=== PATIENT | female | born 1975 | race African-American/Black ===

== ENCOUNTER 2018-08-15 16:09 | Emergency (ER) | payer OTHER ==
[~2018-08-15] VITALS: Ht 152.4 cm; Wt 56.7 kg
[2018-08-15 16:25] LABS: URINE BILIRUBIN NEGATIVE (Negative); URINE BLOOD 3+ (Negative); URINE CLARITY CLEAR; URINE COLOR YELLOW; URINE GLUCOSE-RANDOM* NEGATIVE (Negative); URINE KETONES NEGATIVE (Negative); URINE LEUKOCYTES-REFLEX TRACE (Negative); URINE NITRITE-REFLEX NEGATIVE (Negative); URINE PROTEIN (DIPSTICK) NEGATIVE (Negative); URINE SPECIFIC GRAVITY >= 1.030 (1.005-1.035); URINE UROBILINOGEN 0.2 E.U./dl (0.2-1.0)
[2018-08-15 16:38] LABS: CASTS None Seen /LPF (None Seen); CRYSTALS None Seen /LPF (None Seen); SQUAMOUS 0-3 Few /LPF (0-3); URINE RBC 0-2 Rare /HPF (0-2)
[2018-08-15 16:39] LABS: BACTERIA-REFLEX 1-9 Few /HPF (None Seen); URINE WBC-REFLEX None Seen /HPF (0-5)
[2018-08-15 16:46] LABS: ABSOLUTE NEUTROPHILS 6.8 thou/uL (1.4-8.2); BASOPHILS 0.5 % (0.0-2.0); EOSINOPHILS 2.7 % (0.0-3.0); HEMATOCRIT 34.8 % (37.0-47.0); HEMOGLOBIN 11.4 gm/dL (12.0-15.0); MCH 26.4 pg (26.0-34.0); MCHC 32.8 g/dL (28.0-37.0); MCV 80.3 fL (80.0-100.0); MONOCYTES 8.2 % (1.0-8.0); PLATELET COUNT 238 thou/uL (150-400); POLYS 70.6 % (36.0-66.0); RBC 4.33 mil/uL (4.20-5.00); RDW 13.9 % (10.5-14.5); WBC 9.6 thou/uL (4.0-11.0)
[2018-08-15 17:01] LABS: ANION GAP 9 mmol/L (7-16); BUN 18 mg/dL (7-18); CALCIUM 9.4 mg/dL (8.5-10.1); CHLORIDE 104 mmol/L (98-107); CO2 26 mmol/L (21-32); CREATININE 0.9 mg/dL (0.6-1.0); GLUCOSE 89 mg/dL (74-106); POTASSIUM 3.7 mmol/L (3.5-5.1); SODIUM 139 mmol/L (136-145)
[2018-08-15 17:07] LABS: ALBUMIN 3.6 g/dL (3.4-5.0); LIPASE 217 U/L (73-393); SGOT 28 U/L (15-37); SGPT 31 U/L (30-65); TOTAL BILIRUBIN < 0.1 mg/dL (<0.1-1.0)
[2018-08-15] MEDS ORDERED: NAPROSYN500 MG PO (19:02)
[2018-08-15 19:49] VITALS: BP 132/96
== END 2018-08-15 19:50 | disposition home or self-care (01) ==
LOC: ER 16:09
PROVIDERS: Emergency Medicine
DX: D25.9 Leiomyoma of uterus, unspecified (principal)

== ENCOUNTER 2018-09-19 16:02 | Emergency (ER) | payer OTHER ==
[~2018-09-19] VITALS: Ht 152.4 cm; Wt 57.1 kg
[~2018-09-19 16:02] MED LIST: MEDROXYPROGESTERONE IM; NAPROSYN500 MG PO
[2018-09-19 17:49] LABS: URINE BILIRUBIN NEGATIVE (Negative); URINE BLOOD 2+ (Negative); URINE CLARITY CLEAR; URINE COLOR YELLOW; URINE GLUCOSE-RANDOM* NEGATIVE (Negative); URINE KETONES TRACE (Negative); URINE LEUKOCYTES NEGATIVE (Negative); URINE NITRITE NEGATIVE (Negative); URINE PROTEIN (DIPSTICK) NEGATIVE (Negative); URINE SPECIFIC GRAVITY >= 1.030 (1.005-1.035); URINE UROBILINOGEN 0.2 E.U./dl (0.2-1.0)
[2018-09-19 17:56] LABS: AMORPHOUS URATES Many /LPF (None Seen); BACTERIA None Seen /HPF (None Seen); CASTS None Seen /LPF (None Seen); SQUAMOUS None Seen /LPF (0-3); URINE RBC 3-10 Few /HPF (0-2); URINE WBC None Seen /HPF (0-5)
[2018-09-19 17:59] LABS: ABSOLUTE NEUTROPHILS 3.6 thou/uL (1.4-8.2); BASOPHILS 0.7 % (0.0-2.0); EOSINOPHILS 1.7 % (0.0-3.0); HEMOGLOBIN 9.1 gm/dL (12.0-15.0); LYMPHOCYTES 25.4 % (24.0-44.0); MCHC 32.4 g/dL (28.0-37.0); MCV 77.2 fL (80.0-100.0); MONOCYTES 7.7 % (1.0-8.0); PLATELET COUNT 276 thou/uL (150-400); POLYS 64.5 % (36.0-66.0); RBC 3.62 mil/uL (4.20-5.00); RDW 14.2 % (10.5-14.5); WBC 5.5 thou/uL (4.0-11.0)
[2018-09-19 18:06] LABS: CALCIUM 8.9 mg/dL (8.5-10.1); CREATININE 0.9 mg/dL (0.6-1.0); POTASSIUM 3.8 mmol/L (3.5-5.1)
[2018-09-19 19:13] VITALS: BP 134/83
== END 2018-09-19 19:16 | disposition home or self-care (01) ==
LOC: ER 16:02
PROVIDERS: Physician Assistant
DX: D64.9 Anemia, unspecified (principal); R51 Headache; N93.9 Abnormal uterine and vaginal bleeding, unspecified; Z88.8 Allergy status to other drugs, medicaments and biological substances

== ENCOUNTER → 2018-09-24 | Outpatient (CLI) | payer OTHER ==
[~2018-09-24] VITALS: Ht 152.4 cm; Wt 56.2 kg
--- NOTE | ~2018-09-24 | P ---
[facility] [place] [address] PROCEDURE REPORT Name: BHARTI BRASHER Room #: REG [facility]#: [id number] Admission: 09/24/18 ������������������ Attend Phys: Ramiro Jeter MD Discharge: ������������������ Date of : 75 Report #: [id number] THIS REPORT FOR: //name// CC: Ramiro Joyner MD BRIEF HISTORY: The patient is a 43-year-old woman with a history of sarcoidosis, who has had a recent drop in hemoglobin. She reports her sarcoidosis is not active at this time. She has had some dark stools, but not grossly melanotic. PREOPERATIVE DIAGNOSES: Sarcoidosis and anemia with sudden drop in hemoglobin down to 8.4. POSTOPERATIVE DIAGNOSES: 1. Mild diffuse nodular gastritis. 2. Mild grade A esophagitis. MEDICATIONS: Deep sedation with propofol per anesthesia. SPECIMEN: Biopsies of gastritis. ESTIMATED BLOOD LOSS: 3 mL. PROCEDURE: EGD with biopsy. FINDINGS: Prior to propofol sedation, procedure of upper endoscopy was discussed with the patient as well as potential risks and its complications. She indicates she understands and desires to proceed. DESCRIPTION OF PROCEDURE: With the patient in left lateral decubitus position, the Olympus video endoscope was inserted in cervical esophagus under direct vision without difficulty. Examination of this organ through its entire length revealed normal esophageal mucosa down the squamocolumnar junction. Squamocolumnar junction erosion was seen consistent with grade A esophagitis. No ulcers were seen. No strictures or masses were seen. No bleeding lesions were seen. A hiatus hernia was not seen. Scope was advanced in the stomach, was examined on end view as well as retroflexed views. The mucosa was completely intact throughout the entire stomach. However, there was a very subtle nodular pattern to the gastric mucosa. In view of her sarcoidosis, multiple biopsies were obtained. Upon retroflexion, no mass lesions were seen in the cardia. The pylorus was normal. Duodenal bulb was normal. There was no evidence of ulceration or bleeding. The duodenal sweep down to the third portion was normal. At that point, the scope was slowly withdrawn and careful circumferential views confirmed the above findings. The patient tolerated the procedure well. [facility] [address] [place] [address] PROCEDURE REPORT Name: BHARTI BRASHER Room #: REG [facility].#: [id number] Admission: 09/24/18 ������������������ Attend Phys: Ramiro Jeter MD Discharge: ������������������ Date of : 75 Report #: [id number] CONDITION OF THE PATIENT UPON DISCHARGE: Following the procedure, the patient drowsy and prepared for colonoscopy. INSTRUCTIONS TO THE PATIENT AND FAMILY AT THE TIME OF DISCHARGE: As far as the recent drop in hemoglobin, I do not see any bleeding lesions or potentially bleeding lesions. She has a nodular appearance of the gastric mucosa, possibly representing sarcoidosis and biopsies were obtained. Single erosions were seen at the GE junction. We will have her take omeprazole 20 mg daily for about 4-6 weeks and then she should use p.r.n. thereafter. We will proceed with colonoscopy at this time. ��������������������������������������������� ���������������������������������������� By: ��������������������������������������������� 0751 [id number] Ramiro Jeter MD /nt
--- NOTE | ~2018-09-24 | P ---
[facility] [place] [address] PROCEDURE REPORT Name: BHARTI BRASHER Room #: REG [facility]#: [id number] Admission: 09/24/18 ������������������ Attend Phys: Ramiro Jeter MD Discharge: ������������������ Date of : 75 Report #: [id number] THIS REPORT FOR: //name// CC: Ramiro Joyner MD OUTPATIENT COLONOSCOPY BRIEF HISTORY: The patient is a 43-year-old woman with a history of sarcoidosis. She also recently developed an acute anemia with a drop in hemoglobin to 8.4. She does report having dark stools recently. PREOPERATIVE DIAGNOSIS: Anemia, possibly acute blood loss. POSTOPERATIVE DIAGNOSES: 1. Diminutive rectal polyp. 2. Small internal hemorrhoids. MEDICATIONS: Deep sedation with propofol per anesthesia. SPECIMEN: Rectal polyp. ESTIMATED BLOOD LOSS: 3 mL. PROCEDURE: Colonoscopy to cecum and terminal ileum with biopsy. FINDINGS: Prior to propofol sedation, procedure of colonoscopy was discussed with the patient as well as potential risks and its complications. She indicates she understands and desires to proceed. DESCRIPTION OF PROCEDURE: With the patient in left lateral decubitus position, digital examination was completed, which revealed no abnormalities. Subsequently, the Olympus video colonoscope was introduced into the rectum, advanced under direct vision to the cecum. Done with minimal difficulty. The cecum was identified by the ileocecal valve and the appendiceal orifice. I was able to visualize about 15-20 cm of distal terminal ileum, which was completely normal. There is no evidence of bleeding lesions or potentially bleeding lesions. At that point, scope was slowly withdrawn and careful circumferential views were obtained. Upon slow withdrawal of the scope, the prep was excellent. Mucosa was within normal limits, normal vascular pattern, normal light reflex. As we withdrew the scope, no bleeding lesions or potentially bleeding lesions were seen. The colonic mucosa was normal throughout the colon. However, when we reached the rectum, a diminutive polyp was seen. It had an adenomas appearance, was removed with biopsy forceps. Scope was further withdrawn and no additional abnormalities were seen. Upon retroflexion, small hemorrhoids were seen. Scope was withdrawn. The patient tolerated the procedure well. [facility] [address] [place] [address] PROCEDURE REPORT Name: BHARTI BRASHER Room #: REG [facility].#: [id number] Admission: 09/24/18 ������������������ Attend Phys: Ramiro Jeter MD Discharge: ������������������ Date of : 75 Report #: [id number] CONDITION OF THE PATIENT UPON DISCHARGE: Following procedure, the patient was drowsy, aroused, conversant, and will be discharged home when fully ambulatory. INSTRUCTIONS TO THE PATIENT AND FAMILY AT THE TIME OF DISCHARGE: One diminutive polyp identified, removed. We will follow up on the pathology. If this is an adenoma, she will return in 5 years; if it is not an adenoma, then 10 years would be indicated. As far as recent drop in hemoglobin, I do not see any bleeding lesions. Please see upper endoscopy report as well. A gastrointestinal source of blood loss has not been identified. She will return to the care of Dr. Flynn Joyner for further evaluation of her anemia as needed. This is the patient's first colonoscopy. Withdrawal time from the cecum was 8 minutes 56 seconds. ��������������������������������������������� ���������������������������������������� By: ��������������������������������������������� 0813 0927 Ramiro Jeter MD /nt
--- NOTE | 2018-09-27 16:06 | PATH ---
[facility] [address] [address] PATHOLOGY RPT PROCEDURE Name: ESTEPHANIA BOYER Room #: REG [facility].#: [id number] ������������������ Admission: 09/24/18 ������������������ Date of : 75 Discharge: Report #: [id number] Path Case #: [id number] [facility] Accession Number: [id number] . 01 Material submitted: . PART A: stomach - BX GASTRITIS R/T ANEMIA PART B: rectum - BX POLYP AT RECTUM . 01 Clinical history: . Pre-OP DX: Anemia, Hx sarcoidosis Post-OP DX: Gastritis, esophagitis, rectal polyp . 02 Diagnosis: A. Gastric mucosa, gastritis, endoscopic biopsy: - Helicobacter pylori induced marked active gastritis. - Negative for intestinal metaplasia, atrophy or dysplasia. - Properly controlled immunohistochemical stain performed showing numerous Helicobacter pylori organisms. . B. Polyp, at rectum, endoscopic biopsy: - Hyperplastic polyp. - Negative for dysplasia. (IUV/db; 09/27/2018) LBQ/09/27/2018 . 02 Electronically signed: . Cyn Dalton MD, Pathologist NPI- [id number] . 01 Gross description: . A. Received in formalin labeled "Estephania Boyer, SHO gastritis, R/T anemia," are 6 segments of melgar soft tissue measuring 1.5 x 1.5 x 0.1 cm in aggregate dimensions and ranging from 0.1 to 0.5 cm in maximum dimension. The specimen is submitted entirely in cassette A1. . B. Received in formalin labeled "Estephania Boyer BX polyp at rectum," is a single segment of melgar soft tissue measuring 0.4 cm in maximum dimension. The specimen is entirely submitted in cassette B1. (TSD; 09/24/2018) TOB/TOB . 02 Pathologist provided ICD-10: K29.70, K62.1 . 02 CPT . 349753, 915093, [id number] Specimen Comment: Report sent to / [place] [address] PATHOLOGY RPT PROCEDURE Name: ESTEPHANIA BOYER Room #: REG [facility]#: [id number] ������������������ Admission: 09/24/18 ������������������ Date of : 75 Discharge: Report #: [id number] Path Case #: [id number] Performed at: 01 [facility] Chari Ruffin [address] [place] [address] [address], [place], [place] [id number] MD Jeff Duke MD Phone: [phone] Performed at: [address] [id number] MD Cyn Dalton MD Phone: [phone]
== END | disposition home or self-care (01) ==
LOC: GI
DX: K62.1 Rectal polyp (principal); K64.8 Other hemorrhoids; K29.00 Acute gastritis without bleeding; B96.81 Helicobacter pylori [H. pylori] as the cause of diseases classified elsewhere; K20.9 Esophagitis, unspecified; Z98.890 Other specified postprocedural states; Z79.899 Other long term (current) drug therapy
CPT/HCPCS: 62110; 62900